=== PATIENT | male | born 1950 | race Caucasian/White ===

== ENCOUNTER 2020-10-26 07:22 | Day surgery (SDC) | payer MEDICARE ==
[2020-10-26] MEDS ORDERED: Dextrose 5%-Lactated Ringers 1,000 ML IV SCH (08:00)
[2020-10-26] MEDS ORDERED: Midazolam 1 MG/ML 2 ML SDV ONE (09:46)
[2020-10-26] MEDS ORDERED: fentaNYL 100 MCG/2 ML SDV ONE (09:46)
[2020-10-26] MEDS ORDERED: Propofol 200 MG/20 ML SDV ONE (09:47)
[2020-10-26 11:43] VITALS: BP 148/84; PULSE 82
--- NOTE | 2020-11-13 15:45 | OR ---
DATE OF PROCEDURE: 10/26/2020 SURGEON: Richard Griggs MD PREOPERATIVE DIAGNOSIS: History of colon polyps. POSTOPERATIVE DIAGNOSES: 1. History of colon polyps without any recurrent polyps on today's examination. 2. Uncomplicated left colonic diverticulosis. OPERATIVE PROCEDURE: Flexible colonoscopy. ANESTHESIA: IV sedation. INDICATIONS FOR PROCEDURE: This is a 70-year-old presenting for followup colonoscopy. He does have a history of colon polyps in the past. Plan is to proceed with a colonoscopy with biopsies and/or polypectomy as indicated. Potential risks including bleeding and perforation were discussed, and the patient wishes to proceed. DETAILS OF PROCEDURE: The patient was taken to the operating room, and after IV sedation was administered, the initial digital rectal exam was performed and was unremarkable. Colonoscope was then passed into the rectum with retroflexion revealing uncomplicated hemorrhoidal columns. Scope was then eventually passed to the level of the cecum. The prep was generally fairly good with only small amount of liquid stool being present. To that level, there were some uncomplicated left colonic diverticulosis. Otherwise, no areas of colitis. No recurrent evidence of polyps or other signs of neoplasia was seen. Scope was then withdrawn and the above findings reconfirmed, and the procedure was then concluded. Given the patient's history of colon polyps and a negative examination today, a followup colonoscopy would be warranted in 5 years. Richard Griggs MD /[id number]
== END 2020-10-26 12:00 | disposition home or self-care (01) ==
LOC: JP.SDS 07:22
PROVIDERS: ATTEND Surgery
DX: Z12.11 Encounter for screening for malignant neoplasm of colon (principal); K57.30 Diverticulosis of large intestine without perforation or abscess without bleeding; K64.9 Unspecified hemorrhoids; E78.5 Hyperlipidemia, unspecified; I10 Essential (primary) hypertension; I25.10 Atherosclerotic heart disease of native coronary artery without angina pectoris; Z95.1 Presence of aortocoronary bypass graft; E11.9 Type 2 diabetes mellitus without complications; E66.9 Obesity, unspecified; Z86.010 Personal history of colon polyps; Z88.8 Allergy status to other drugs, medicaments and biological substances; Z68.30 Body mass index [BMI] 30.0-30.9, adult
CPT/HCPCS: J2250; J2704; J3010; J7121

== ENCOUNTER 2023-07-06 05:49 | Day surgery (SDC) | payer MEDICARE ==
[2023-07-06 06:29] LABS: HEMATOCRIT 42.4 % (38.4-49.7); HEMOGLOBIN 13.9 g/dL (12.9-16.9); MEAN CORPUSCULAR HEMOGLOBIN 29.6 pg (31.6-35.5); MEAN CORPUSCULAR HGB CONC 32.8 g/dL (31.6-35.5); MEAN CORPUSCULAR VOLUME 90.2 fL (81.4-99.0); RED BLOOD CELL COUNT 4.7 M/uL (4.14-5.76); WHITE BLOOD CELL COUNT,WBC 11.5 K/uL (3.2-11.0)
[2023-07-06] MEDS ORDERED: Sodium Chloride 0.9% 1,000 ML IV SCH (06:30)
[2023-07-06 06:44] LABS: ALANINE AMINOTRANSFERASE,ALT 31 U/L (12-78); ALKALINE PHOSPHATASE 44 U/L (46-116); ASPARTATE AMNIOTRANSFERASE,AST 19 U/L (15-37); BILIRUBIN TOTAL 0.6 mg/dL (0.2-1.0); BLOOD UREA NITROGEN,BUN 19 mg/dL (7-18); CALCIUM 8.4 mg/dL (8.5-10.1); CARBON DIOXIDE,CO2 26 mmol/L (21-32); CHLORIDE,CL 100 mmol/L (100-108); CREATININE 1.1 mg/dL (0.8-1.3); ESTIMATED GFR 71 mL/min (>60); GLUCOSE RANDOM 210 mg/dL (74-106); POTASSIUM,K 4.2 mmol/L (3.6-5.2); PROTEIN TOTAL,TP 8.1 g/dL (6.4-8.2); SODIUM,NA 137 mmol/L (140-148)
[2023-07-06 06:45] LABS: ANION GAP 15.2 mmol/L (5.0-14.0)
[2023-07-06] MEDS ORDERED: metroNIDAZOLE/Normal Saline 500 MG in Premix Bag 1 BAG IV ONE (07:00)
[2023-07-06] MEDS ORDERED: ceFAZolin 2 GM in Premix Bag 1 BAG IV ONE (07:00)
[2023-07-06] MEDS ORDERED: Lidocaine 1% with EPINEPHrine 1:100,000 50 ML MDV ONE ×2 (07:12→07:21)
[2023-07-06] MEDS ORDERED: Bupivacaine 0.5% 50 ML MDV ONE ×2 (07:12→07:20)
[2023-07-06] MEDS ORDERED: Indocyanine Green 25 MG SDV IV ONE (07:30)
[2023-07-06] MEDS ORDERED: fentaNYL 250 MCG/5 ML SDV ONE ×2 (07:45→09:00)
[2023-07-06] MEDS ORDERED: Dexamethasone 4 MG/ML SDV ONE (07:46)
[2023-07-06] MEDS ORDERED: Rocuronium 50 MG/5 ML Vial ONE (07:46)
[2023-07-06] MEDS ORDERED: Propofol 200 MG/20 ML SDV ONE (07:46)
[2023-07-06] MEDS ORDERED: Neostigmine Methylsulfate 10 MG/10 ML MDV ONE (07:46)
[2023-07-06] MEDS ORDERED: Ondansetron 4 MG/2 ML SDV ONE (07:46)
[2023-07-06] MEDS ORDERED: Succinylcholine 200 MG/10 ML MDV ONE (07:46)
[2023-07-06] MEDS ORDERED: Glycopyrrolate 0.2 MG/ML 5 ML MDV ONE (07:46)
[2023-07-06] MEDS ORDERED: ePHEDrine 50 MG/ML SDV ONE (08:38)
[2023-07-06] MEDS ORDERED: Zolpidem 5 MG Tab PO PRN (08:38)
[2023-07-06] MEDS ORDERED: Acetaminophen/HYDROcodone 325-5 MG Tab PO PRN (08:38)
[2023-07-06] MEDS ORDERED: Docusate Sodium 100 MG Cap PO PRN (08:38)
[2023-07-06] MEDS ORDERED: hydrOXYzine HCL 100 MG/2 ML SDV IM PRN (08:38)
[2023-07-06] MEDS ORDERED: Ondansetron 4 MG/2 ML SDV IVPUSH PRN (08:38)
[2023-07-06] MEDS ORDERED: Benzocaine/Cetylpyridinium/Menthol Lozenge MUCMEM PRN (08:38)
[2023-07-06] MEDS ORDERED: fentaNYL 100 MCG/2 ML SDV IVPUSH PRN ×3 (08:38)
[2023-07-06] MEDS ORDERED: Bupivacaine 0.5%/EPINEPHrine 1:200,000 30 ML SDV INJECT ONE ×2 (08:51)
[2023-07-06] MEDS ORDERED: Lactated Ringers 1,000 ML ONE (08:56)
[2023-07-06] MEDS ORDERED: Scopalamine 1mg/3day Transdermal Patch TOP SCH (09:00)
[2023-07-06] MEDS ORDERED: Labetalol 20 MG/4 ML Syringe ONE (09:08)
[2023-07-06] MEDS ORDERED: SCOPOLAMINE PATCH CHECK TOP SCH (12:00)
[2023-07-06 12:51] VITALS: BP 152/82; PULSE 101
== END 2023-07-06 15:07 | disposition home or self-care (01) ==
LOC: JP.SDS 05:49
PROVIDERS: ATTEND Surgery
DX: K80.10 Calculus of gallbladder with chronic cholecystitis without obstruction (principal); I10 Essential (primary) hypertension; E11.59 Type 2 diabetes mellitus with other circulatory complications; E11.42 Type 2 diabetes mellitus with diabetic polyneuropathy; E78.5 Hyperlipidemia, unspecified; E66.01 Morbid (severe) obesity due to excess calories; Z68.29 Body mass index [BMI] 29.0-29.9, adult; Z87.891 Personal history of nicotine dependence; Z98.890 Other specified postprocedural states; Z79.84 Long term (current) use of oral hypoglycemic drugs; Z79.4 Long term (current) use of insulin; Z79.899 Other long term (current) drug therapy; Z88.8 Allergy status to other drugs, medicaments and biological substances
CPT/HCPCS: 36415; 47563; 64488; 80053; 85027; 88304; A9270; J0171; J0330; J0690; J1100; J1836; J1920; J2405; J2704; J2710; J2795; J3010; J3490; J7030; J7120